=== PATIENT | female | born 2000 | race Caucasian/White ===

== ENCOUNTER 2022-10-05 01:01 | Day surgery (SDC) | payer OTHER, SELFPAY ==
[2022-09-29 12:50] VITALS: BMI 30.2
--- NOTE | 2022-09-29 12:56 | PC.NURSE ---
Report to the Outpatient Waiting Room, entrance under the green pavilion located off [facility], at time 1230 on date 10/05/22. Planned Procedure Time: 1430. Time changes happen often and if your time is changed the preop area will call you the afternoon before. - You and your visitor will be asked to self-screen and do not enter if you have any COVID symptoms. - A mask is optional within the hospital at this time. Patients may have clear liquids (water, carbonated beverages, clear teas, apple juice) until 3 hours prior to surgery with a maximum of 20 ounces. - No food from midnight until time of surgery Take the following medications with a SIP of water the morning of surgery: CONTROL PILL DO NOT STOP ANY OF YOUR OTHER PRESCRIPTION MEDICATIONS PRIOR TO SURGERY ?EXCEPT THE FOLLOWING Medications to discontinue per physician: IBUPROFEN Date to take last dose: PER DR. SALDANA Please no make-up, nail czech, hairspray, perfume, deodorant, or body powder the day of surgery. No jewelry (including any body piercings) or valuables the day of surgery, leave them at home. Please take a shower or bath the night before, or the morning of, surgery with an antibacterial soap. Wear comfortable, loose fitting clothing. - Jewelry must be removed prior to entering the operating room. Rings and piercings that are not removed may be cut off. - The hospital will not accept responsibility for valuables. - Please leave all valuables, including medications, at home the day of surgery. If you are going home after surgery, a licensed cab driver must drive you home. - NO public transportation without another adult if you receive anesthesia. - We recommend that an adult stay with you for 24 hours following discharge. - We also recommend that you do not drive, make important decision, drink alcoholic beverages, or take any drugs that were not prescribed by your health care provider for at least 24 hours after your discharge time. Follow any additional instructions given to you from your surgeon. If you or anyone in your household have experienced Covid symptoms in the past week, please notify your surgeon or the nurse liaison at the phone number below for possible testing. Telephone instructions given to PT - ISMAEL DEE and asked if any additional questions and then verbalized understanding. Patient advised to call surgeon office or pre surgery nurse liaison [phone] if any additional questions.
--- NOTE | 2022-10-05 08:20 | PM.IMHP ---
H&P: HPI History of Present Illness Date/Time: 10/05/22 08:20 Chief Complaint: Abnormal uterine bleeding Narrative: 21-year-old female who presents for hysteroscopy D&C forabnormal uterine bleeding.? Patient was recently seen for annual exam and complained of continuous breakthrough bleeding.? Patient is on combined hormonal contraceptive pills.? She continues to have frequent breakthrough bleeding.? Patient states the intensity of her bleeding very.? Patient states some days she will have light spotting and other days she will wake up in a pool of blood.? Patient had a transvaginal ultrasound which showed an abnormally thickened endometrial lining with pockets of fluid within the cavity. Review of Systems Cardiovascular: Cardiovascular: Denies chest pain, Denies leg edema, Denies palpitations, Denies dyspnea and Denies dyspnea on exertion Respiratory: Respiratory: Denies cough, Denies dyspnea and Denies dyspnea on exertion Gastrointestinal: Gastrointestinal: Denies abdominal pain, Denies constipation, Denies diarrhea, Denies nausea and Denies vomiting Genitourinary: Genitourinary: Denies hematuria, Denies urinary frequency, Denies dysuria, Denies pelvic pain, Denies urinary incontinence and Denies vaginal discharge Neurologic: Reports system reviewed and no additional complaints, except as documented Psychiatric: Psychiatric: Reports no additional psychiatric complaints Endocrine: Endocrine: Denies palpitations PMFSH Past Medical History Medical History (Updated 08/28/22 @ 15:17 by Dwight Juan MD) Anxiety and depression Surgical History Surgical History (Updated 04/01/21 @ 13:50 by SHANICE Pope) History of tonsillectomy age 7 Family History Family History (Updated 04/01/21 @ 13:52 by SHANICE Pope) Father Hypertension Myocardial infarct Mother Hypertension Cerebrovascular accident Other Asthma Social History Social History (Updated 08/28/22 @ 15:01 by Yolanda Berg CMA) Smoking status: Current every day smoker Tobacco type: e-cigarettes/vaping Second hand tobacco smoke exposure: Yes Alcohol intake: current Drinks per week: 3 Alcohol use details: occasional Substance use: current Substance use type: marijuana Other substance usage details: every other day Lack of Transportation: No Lack of Food: Never True Current Housing: I Have Housing Concerned About Future Housing: No Difficulty Paying Gas/Electric Bills: No Difficulty Paying for Meds: YES Currently Unemployed: No Education: High School Diploma/GED Difficulty w/ Childcare or Family Care: No Living arrangements: with family Additional living arrangements comments: SISTER Occupation/Education: occupation Gender identity (if verbalized by the patient): Female Sexual Orientation (if Verbalized by the Patient): Straight or Heterosexual Spiritual care concerns: No Meds Home Medications and Allergies Home Medications Medication Instructions Recorded Confirmed Type levonorgestrel-ethinyl estradiol 1 tablet PO DAILY #28 tabs 07/04/22 09/29/22 Rx 90 mcg-20 mcg (28) tablet (Angella (28)) ibuprofen 800 mg tablet 800 mg PO TID PRN Pain 09/29/22 09/29/22 History Allergies Allergy/AdvReac Type Severity Reaction Status Date / Time capsaicin [From Capzasin] Allergy Intermediate Rash Verified 09/29/22 12:50 menthol [From Capzasin] Allergy Intermediate Rash Verified 09/29/22 12:50 Exam Const: General: no acute distress Eyes: EOM: EOMs intact bilaterally Neck: Neck: supple Thyroid: thyroid normal Chest: Breast/axilla inspection: normal inspection of the breasts Breast/axilla palpation: normal palpation of the breasts, normal palpation of the axillae and no axillary lymphadenopathy Resp: Effort & Inspection: normal respiratory effort Auscultation: clear to auscultation bilaterally Cardio: Rate: regular rate Rhythm: regular rhythm GI: Insp
--- NOTE | 2022-10-05 08:22 | WPDHPUPDATE1 ---
History and Physical Update Update Date/Time: 10/05/22 08:22 History and Physical has been reviewed, including an updated exam of the patient. There are NO changes in the patient's condition. Risks, benefits, and alternatives have been discussed and questions answered. Patient agrees to proceed with procedure.
[2022-10-05 13:01] VITALS: BP 143/83; PULSE 71; RESP 16; TEMP 37.1; O2SAT 100
[2022-10-05 13:05] LABS: Hematocrit 40.4 % (37.0-47.0); Hemoglobin 13.3 g/dL (12.0-15.0)
--- NOTE | 2022-10-05 13:09 | WPDANESEPPF ---
Anes - Initial Pre Proc Eval Procedure: Operation Date: 10/05/22 14:30 Proposed Procedures p Hysteroscopy Dilation and Curettage - Dwight Juan MD Date/Time: 10/05/22 13:09 Surgeon: Dwight Juan MD Pre Op Diagnosis: abnormal uterine bleeding Patient Data Age: 21 Gender: F Height: 1.55 m Weight: 72.6 kg Last Vital Signs Temp 37.1 C 10/05/22 13:01 Pulse 71 10/05/22 13:01 Resp 16 10/05/22 13:01 BP 143/83 H 10/05/22 13:01 Pulse Ox 100 10/05/22 13:01 O2 Del Method Room Air 10/05/22 13:01 Allergies Allergy/AdvReac Type Severity Reaction Status Date / Time capsaicin [From Capzasin] Allergy Intermediate Rash Verified 10/05/22 12:34 menthol [From Capzasin] Allergy Intermediate Rash Verified 10/05/22 12:34 Home Medications Medication Instructions Recorded Confirmed Type levonorgestrel-ethinyl estradiol 1 tablet PO DAILY #28 tabs 07/04/22 09/29/22 Rx 90 mcg-20 mcg (28) tablet (Angella (28)) ibuprofen 800 mg tablet 800 mg PO TID PRN Pain 09/29/22 09/29/22 History Laboratory Tests 10/05/22 12:55 Hgb Pending Hct Pending Patient hx anesthesia problems: none Family hx anesthesia problems: none Results Review: All pre-operative results and documents have been reviewed as part of the pre-operative evaluation. [facility] Past Medical History Medical History Anxiety and depression Surgical History Surgical History History of tonsillectomy age 7 Family History Family History Father Hypertension Myocardial infarct Mother Hypertension Cerebrovascular accident Other Asthma Social History Social History Smoking status: Current every day smoker Tobacco type: e-cigarettes/vaping Second hand tobacco smoke exposure: Yes Alcohol intake: current Drinks per week: 3 Alcohol use details: occasional Substance use: current Substance use type: marijuana Other substance usage details: every other day Lack of Transportation: No Lack of Food: Never True Current Housing: I Have Housing Concerned About Future Housing: No Difficulty Paying Gas/Electric Bills: No Difficulty Paying for Meds: YES Currently Unemployed: No Education: High School Diploma/GED Difficulty w/ Childcare or Family Care: No Living arrangements: with family Additional living arrangements comments: SISTER Occupation/Education: occupation Gender identity (if verbalized by the patient): Female Sexual Orientation (if Verbalized by the Patient): Straight or Heterosexual Spiritual care concerns: No Anes - Eval Final PreProcedure Day of Procedure 10/05/22 13:09 Patient weight: obese Heart: regular rate and rhythm Lungs: clear to auscultation Airway: Mallampati scale class II Neurological: alert and oriented Last oral intake: >/= 8 hours ASA classification: III Emergent: no Anesthetic plan: proceed Anesthesia type and monitoring: general GIVS and standard monitoring Results Review: All pre-operative results and documents have been reviewed as part of the pre-operative evaluation. Informed Consent: The patient's anesthetic plan and its attendant risks and benefits were discussed with the patient/family/POA. Questions were solicited and answers provided to the satisfaction of the patient/family/POA.
[2022-10-05] MEDS: LACTATED RINGERS 1,000 ML 30 ML IV CONT (13:45)
[2022-10-05] MEDS: LIDOCAINE HCL 1% LOCAL INJ 20 ML VIAL 10 ML INFILTRATE (14:08)
--- NOTE | 2022-10-05 14:15 | W.PM.PROC2 ---
Procedure Note - Detailed Date of Procedure 10/05/22 Pre-op Diagnosis abnormal uterine bleeding Post-op Diagnosis Same Procedure Performed paracervical block hysteroscopy dilation & curettage Surgeon Dwight Juan MD Anesthesia General Indications abnormal uterine bleeding Findings normal appearing intrauterine cavity. Normal tubal ostia bilaterally Description of Procedure Aileen Banda presents for hysteroscopy D&C for the above. She was counseled as to the indications, risks, benefits, and alternatives to surgery, with the risks including bleeding, infection, damage to surrounding organs, VTE, and complications of anesthesia. Her verbal and written consent was obtained. PROCEDURE: The patient was taken to the OR and general anesthesia induced. She was prepped and draped in Favian stirrups with support of the back and bilateral lower extremities. I/O catheterization performed of the bladder. The above findings were noted. Infiltration with 1% lidocaine at the 3 and 9 o'clock cervical positions was performed. A single tooth tenaculum was placed on the anterior lip of the cervix. The cervix was dilated with sequential Loly dilators. Hysteroscopy, using a normal saline medium, was performed and showed the above findings. Sharp uterine curettage was then performed and tissue placed on Telfa. The tenaculum was removed and hemostasis was observed. The patient tolerated the procedure well. Sponge, lap, and needle counts were correct. The patient was taken to the recovery room in stable condition. Estimated Blood Loss 10 Drains No Packing No Pathology Yes (endometrial curettings ) Complications No immediate complications Condition Stable Disposition PACU [facility] Billing Surgery - Charge Forward: Surgery Billing
[2022-10-05 14:18] VITALS: BP 123/84; PULSE 76; RESP 20; O2SAT 98
[2022-10-05 14:48] VITALS: BP 130/87; PULSE 60; RESP 18; O2SAT 99
[2022-10-05] MEDS: oxyCODONE HCL (*CRX) 5 MG TAB IR PO (15:05)
[2022-10-05 15:08] VITALS: BP 121/83; PULSE 77; RESP 14
[2022-10-05 15:28] VITALS: BP 125/75; PULSE 66; RESP 15
== END 2022-10-05 15:45 | disposition home or self-care (01) ==
PROVIDERS: Visit Provider Student in an Organized Health Care Education/Training Program
PROC: 0U5B8ZZ Destruction of Endometrium, Via Natural or Artificial Opening Endoscopic (ICD-10-PCS; CPT 58563; principal; 2022-10-05 14:30)
DX: N92.1 Excessive and frequent menstruation with irregular cycle (principal); F41.8 Other specified anxiety disorders; F12.90 Cannabis use, unspecified, uncomplicated; E66.9 Obesity, unspecified; Z68.30 Body mass index [BMI] 30.0-30.9, adult; F17.290 Nicotine dependence, other tobacco product, uncomplicated
CPT/HCPCS: 58558; 36415; 85014; 85018; 88305; A9270; J1885; J2250; J2405; J2704; J3010; J7120